=== PATIENT | female | born 1940 | race Caucasian/White ===

== ENCOUNTER → 2020-04-07 | Outpatient (CLI) | payer MEDICARE, OTHER ==
[~2020-04-07] MED LIST: IOHEXOL 240 MG/ML 50ML VIAL. ONE; IOHEXOL 240 MG/ML 50ML VIAL. PO ONE; IOHEXOL 300 MG/ML 75 ML VIAL. IV ONE
--- NOTE | 2020-04-07 15:10 | RAD ---
CT CHEST ABD PELVIS W/CONTRAST Indication: Malignant neoplasm of the right ovary Technique: Postcontrast CT imaging was performed of the chest, abdomen, pelvis, multiplanar reconstruction images submitted. Oral contrast was also given. One or more of the following individualized dose reduction techniques were utilized for this examination: 1. Automated exposure control 2. Adjustment of the mA and/or kV according to patient size 3. Use of iterative reconstruction technique. Comparison: None Chest: Findings: There are some nodules of the bilateral thyroid gland, largest on the right about 1.1 cm, also some calcification on the left. Small noncalcified lung nodules include: 0.4 cm left upper lobe nodule image 14 series 4, 0.4 cm left lower lobe nodule image 71 series 4, 0.2 cm left lower lobe nodule image 62, 0.3 cm right lower lobe nodule image 77 series 4, 0.2 cm right lower lobe nodule image 64, 0.4 cm right middle lobe nodule image 50 series 4, 0.2 cm right upper lobe nodule image 54, 0.5 cm right upper lobe nodule image 35 series 4. There is no pleural pericardial fluid, pneumothorax, infiltrate. Major airways are patent. Thoracic aortic caliber is within normal limits, no intraluminal flap. There are old anterolateral eighth and ninth rib fractures. There is multilevel thoracic degenerative disc disease. IMPRESSION: 1. There are small bilateral pulmonary nodules, largest 0.5 cm. There are no previous exams to assess stability. Follow-up in 12 months such as in 12 months is recommended. Abdomen pelvis FINDINGS: No significant focal abnormality is identified of the liver, pancreas, or spleen. There is small accessory spleen near the hilum. Gallbladder is not seen. Both kidneys enhance, no hydronephrosis. There is a 0.8 cm hypodense lesion of the inferior left kidney, density measurements of a cyst. There is another hypodense lesion of the mid left kidney 0.8 cm, density measurements of a cyst. There is also 1.4 cm cyst of the superior right kidney and 0.9 cm cyst of the lateral superior right kidney. There is multilevel advanced lumbar degenerative disc disease. There is multilevel lumbar facet degenerative change. There is fairly severe spinal stenosis at L3-4, lesser degree of spinal stenosis L4-5 and L2-3. There is lumbar neural foramina compromise greatest on the right at L3-4. There is dextroscoliosis near the thoracolumbar junction. 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 There is mild distention of the urinary bladder. There is sclerosis of the superior sacrum, likely sequela of old fracture with degree of anterior spondylolisthesis at S1-S2. IMPRESSION: 1.There is no significant lymphadenopathy or other CT evidence of metastatic disease to the abdomen or pelvis. 2. There are bilateral renal cysts. 3. Sclerosis of superior sacrum is probably sequela of old fracture. Electronically signed by: Anant Crow MD (04/07/2020 3:07 PM) [id number]
== END | disposition home or self-care (01) ==
LOC: CT 11:53
PROVIDERS: ATTEND Internal Medicine Hematology & Oncology
DX: C56.1 Malignant neoplasm of right ovary (principal); E04.2 Nontoxic multinodular goiter; R91.8 Other nonspecific abnormal finding of lung field; M51.34 Other intervertebral disc degeneration, thoracic region; N28.1 Cyst of kidney, acquired; M48.061 Spinal stenosis, lumbar region without neurogenic claudication; M16.0 Bilateral primary osteoarthritis of hip; N32.89 Other specified disorders of bladder; M43.18 Spondylolisthesis, sacral and sacrococcygeal region; Z88.6 Allergy status to analgesic agent; Z91.018 Allergy to other foods
CPT/HCPCS: 71260; 74177; Q9966; Q9967

== ENCOUNTER → 2021-04-18 | Outpatient (CLI) | payer MEDICARE, OTHER ==
[~2021-04-18] MED LIST changes: -IOHEXOL 240 MG/ML 50ML VIAL. PO ONE
[2021-04-18 11:16] LABS: CREATININE 0.7 mg/dL (0.6-1.0); GFR 80.3
--- NOTE | 2021-04-18 15:19 | RAD ---
EXAM: Chest, abdomen and pelvis CT with intravenous contrast. HISTORY: Right ovarian cancer. TECHNIQUE: Computed tomographic images of the chest, abdomen and pelvis were obtained following the a dministration of intravenous contrast. Multiplanar reformatting was performed. *One or more of the following individualized dose reduction techniques were utilized for this examina tion: 1. Automated exposure control. 2. Adjustment of the mA and/or kV according to patient size. 3. Use of iterative reconstruction technique. COMPARISON: None. FINDINGS: Chest: The heart is normal in size. The aorta is normal in caliber. There is a standard aor tic arch branching pattern. There is a heterogeneous thyroid. There are left thyroid calcifications. No discrete nodule is seen on this exam. There are nonspecific mediastinal and hilar lymph nodes. The se are not pathologically enlarged. There are also nonspecific bilateral axillary lymph nodes. There is no pneumothorax or pleural effusion. There are several small bilateral pulmonary nodules. The largest of these include a 4 mm nodule withi n the left upper lobe (series 4, image 15, a 3 mL nodule within the right upper lobe (series 4, image 35), a 4 mm nodule within the lateral left lower lobe (series 4, image 62), a 4 mm nodule within the lateral left lung base (series 4, image 71), and a 4 mm nodule within the right lower lobe (series 4 , image 58). There are a few additional 2 mm and 3 mm nodules. There is degenerative change throughou t the spine. There are few bone islands and osseous hemangiomas. There are few chronic endplate depre ssions. 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 There is no acute or suspicious osseo us finding. Abdomen and pelvis: No hepatic lesion is seen. The gallbladder is surgically absent. The pancreas is unremarkable. There is a splenule adjacent to an otherwise unremarkable spleen. The adrenal glands ar e unremarkable. There are bilateral simple renal cysts, the largest of which measures 1.7 cm within t he upper pole the right kidney. There is no hydronephrosis or solid renal lesion. There is no appendicitis. There is no bowel obstruction. The aorta is normal in caliber. The bladder is unremarkable. The uterus and ovaries are absent. There is no mesenteric, retroperitoneal or inguin al lymphadenopathy. There are surgical clips within the bilateral iliac chain. There is no convincing metastatic soft tissue implant. There are sacral insufficiency fractures, these are chronic in appearance. There is degenerative doherty ge throughout the spine and multilevel listhesis. There is scoliosis and hyperlordosis. There is risa re osteoarthritis involving both hips. There is suspected bone demineralization. IMPRESSION: 1. Multiple small bilateral pulmonary nodules measuring up to 4 mm. These are indeterminant. Given hi story of primary neoplasm, short-term CT follow-up in 6 months is recommended. 2. Findings consistent with hysterectomy and bilateral oophorectomy and suspected lymph iliac chain n ode dissection. There is no convincing metastatic lymphadenopathy or metastatic soft tissue implant. 3. Multiple simple appearing renal cysts. Follow-up is not routinely performed for simple cysts. 4. Chronic appearing sacral insufficiency fractures. Electronically signed by: Faye Peterson MD (04/18/2021 3:17 PM) [id number]
== END ==
LOC: CT 10:27
PROVIDERS: ATTEND Internal Medicine Hematology & Oncology
DX: N28.1 Cyst of kidney, acquired (principal); R91.8 Other nonspecific abnormal finding of lung field; M47.819 Spondylosis without myelopathy or radiculopathy, site unspecified; M19.012 Primary osteoarthritis, left shoulder; M19.011 Primary osteoarthritis, right shoulder; M43.19 Spondylolisthesis, multiple sites in spine; M41.80 Other forms of scoliosis, site unspecified; M16.0 Bilateral primary osteoarthritis of hip; Z90.49 Acquired absence of other specified parts of digestive tract; Z90.710 Acquired absence of both cervix and uterus; Z90.722 Acquired absence of ovaries, bilateral
CPT/HCPCS: 36415; 71260; 74177; 82565; 84520; Q9967

== ENCOUNTER → 2021-06-15 | Outpatient (CLI) | payer MEDICARE, OTHER ==
--- NOTE | 2021-06-15 13:39 | RAD ---
INDICATION: Screening for osteopenia/osteoporosis. Reason: SCREENING / Spl. Instructions: / History : . Postmenopausal evaluation. COMPARISON: None. TECHNIQUE: Bone densitometry was performed through the lumbar spine and proximal femur. IMPRESSION: Lumbar Spine: BMD: 1.26 T-Score: 0.7 Range: Scoliotic curvature the spine. Regions of sclerosis could be secondary to degenerative changes . Proximal Femur: BMD: 0.77 T-Score: -1.5 Range: Osteopenic World Health Organization Criteria for Bone Density: T-Score: > -1.0: Normal Range < -1.0 to -2.5: Osteopenic Range < -2.5: Osteoporotic Range Electronically signed by: Dayday Goldman MD (06/15/2021 1:37 PM) [id number]
== END ==
LOC: DXRAD 12:38
PROVIDERS: ATTEND Internal Medicine
DX: M85.88 Other specified disorders of bone density and structure, other site (principal); M81.0 Age-related osteoporosis without current pathological fracture
CPT/HCPCS: 77080